=== PATIENT | female | born 1990 | race Caucasian/White ===

== ENCOUNTER 2017-09-30 09:06 | Inpatient (IN) | payer BC, MEDICAID ==
[2017-09-30] MEDS ORDERED: Dinoprostone* 10 MG VAG.SUPP VAGINAL ONE (10:36)
--- NOTE | 2017-09-30 10:51 | HP ---
General Information - General Information Maternal Age: 27 Grav: 1 Para: 0 SAB: 0 IEA: 0 Estimated Due Date: 10/02/17 Determined By: Early Ultrasound Gestational Age in Weeks and Days: 39 Weeks and 5 Days Maternal Blood Type and Rh: A Positive - Results this Serology/RPR Result: Non-Reactive Rubella Result: Immune HBsAg Result: Negative HIV Result: Negative GBS Culture Result: Negative Past Medical History Delivery History Comment: Primip Pertinent Past Medical History: Non-Contributory Pertinent Past Surgical History: None Pertinent Family History: Non-Contributory - Antepartal Records Antepartal Records: Reviewed, Complicated by: - Gestational HTN Review of Systems Constitutional: Comfortable CV Complaint: No Respiratory: Shortness of Breath: No Gastrointestinal: No Nausea/Vomiting - c/o mild constipation Genitourinary: No Dysuria, No Bleeding, No Leaking Fluid Musculoskeletal: No Complaint Neurological: No Headache, No Visual Changes Movement: Normal Exam Allergies/Adverse Reactions: Allergies No Known Allergies Allergy (Verified 11/24/12 21:22) T-98.4, P-82, R-18, BP-147/80, O2-100 Repeat BP 135/76 - Measurements Height: 5 ft 10 in Weight: 204 lb Weight in lbs: 204 Body Mass Index (BMI): 29.2 Pre- Weight: 155 lb Weight Gained This : 49 lbs and 0 ozs - Exam Abdomen: No Upper Quadrant Pain Breast: Breast Exam Deferred CVA: No CVA Tenderness Extremities: No Edema Heart: Normal Rhythm/Heart Sounds HEENT: No Significant Findings Lungs: Clear Bilaterally Rectal: Rectal Exam Deferred Reflexes: DTR 2+ - No clonus Thyroid: - - Within normal limits w/ entry to AP care - Cervical Exam 1cm/70%/-1/posterior/ VTX - Abdominal Exam Abdomen Exam: Non-Tender, Fundal Height Consistent with Dates - Membranes Membrane Status: Intact - Ultrasound/Biophysical Profile Ultrasound Status: Not Done EFM Findings - External Monitor Findings Baseline Heart Rate: 150 External Monitor Findings: Accelerations Present, No Pattern of Variable or Late Decelerations, Variability Moderate, Baseline Stable Contractions: None Assessment/Plan - Reason for Visit Reason for Visit: IOL for gestational HTN at 39 5/7 weeks gestation - Obstetrical Risk Factors Obstetrical Risk Factors: Gestational Hypertension - Plan Plan: Induction, Cervical Ripening Plan Comment: PARQ of cervical ripening with Cervadil. Pt agrees with plan. Admit to L&D for cervical ripening and induction. Anticipate . May consider pain medication as needed. - Date/Time of Admission Date of Admission: 09/30/17 Time of Admission: 10:41
[2017-09-30] MEDS ORDERED: Lidocaine 2.5%/Prilocain 2.5%* 5 GM TUBE TOPICAL SCH (21:00)
--- NOTE | 2017-09-30 22:15 | PTEDU ---
Patient Name: LUH JAMES LUH JAMES selected video: Never Ever Shake a Baby to view on 09/30/2017 at 10:15:18 PM from [email or web address] [id number]
[2017-09-30] MEDS ORDERED: Promethazine INJ(RESTRICTED)* 25 MG/ML 1 ML VIAL IV PRN (22:31)
[2017-09-30] MEDS ORDERED: Nalbuphine* 20 MG/ML 1 ML VIAL IV PRN (22:31)
[2017-09-30 23:49] LABS: ABS Basophils 0 10^3/ul (0-0.2); ABS Eosinophils 0.1 10^3/ul (0-0.6); ABS Lymphocytes 1.3 10^3/ul (1.0-4.8); ABS Monocytes 0.9 10^3/ul (0-0.8); ABS Neutrophils 14.5 10^3/ul (1.5-7.7); ABS Nucleated RBC 0 10^3/ul; Eosinophil % 0.5 % (0-6); Hematocrit 37 % (35-47); Hemoglobin 12.3 g/dl (12.0-16.0); Mean Corpuscular HGB Conc 33 g/dl (31-36); Mean Corpuscular Hemoglobin 27 pg (27-31); Mean Corpuscular Volume 79 fL (80-97); Mean Platelet Volume 10.7 um3 (7.4-10.4); Nucleated Red Blood Cells % 0; Platelet Count 198 10^3/ul (150-450); Red Blood Count 4.64 10^6/ul (4.0-5.4); Red Cell Distribution Width 15 % (10.5-15); White Blood Count 16.9 10^3/ul (3.5-10.8)
[2017-10-01 00:11] LABS: EGFR Non-African American 95.6 (>60)
[2017-10-01] MEDS ORDERED: Misoprostol TAB* 100 MCG ONE ×3 (09:48→14:13)
[2017-10-01] MEDS ORDERED: Misoprostol TAB* 100 MCG VAGINAL ONE (14:10)
[2017-10-01] MEDS ORDERED: Oxytocin in LR* 20 UNITS/1,000 ML BAG IVPB SCH ×2 (15:00→22:00)
[2017-10-01] MEDS ORDERED: OBEPIDURAL* 250 ML EPIDURAL ONE (16:27)
[2017-10-01] MEDS ORDERED: Famotidine TAB* 20 MG PO PRN (17:06)
[2017-10-01] MEDS ORDERED: Sodium Citrate/Citric Acid* 15 ML UDC PO PRN (17:06)
[2017-10-01] MEDS ORDERED: EPHEDrine (Pressors)* 50 MG/ML VIAL IV PUSH PRN ×2 (17:06)
[2017-10-01] MEDS ORDERED: Phenylephrine IV* 40 MCG/ML 10 ML SYRINGE IV PUSH PRN ×2 (17:06)
[2017-10-01] MEDS ORDERED: OBEPIDURAL* 250 ML EPIDURAL SCH (18:00)
[2017-10-01] MEDS ORDERED: Acetaminophen TAB* 325 MG PO PRN (21:19)
[2017-10-01] MEDS ORDERED: Witch Hazel PAD* JAR TOPICAL PRN (21:19)
[2017-10-02] MEDS: Ibuprofen TAB* 600 MG PO PRN ×3 (06:42→22:12)
[2017-10-02 07:11] LABS: ABS Basophils 0.1 10^3/ul (0-0.2); ABS Eosinophils 0.1 10^3/ul (0-0.6); ABS Lymphocytes 1.5 10^3/ul (1.0-4.8); ABS Monocytes 0.8 10^3/ul (0-0.8); ABS Neutrophils 11.6 10^3/ul (1.5-7.7); ABS Nucleated RBC 0 10^3/ul; Eosinophil % 0.8 % (0-6); Hematocrit 32 % (35-47); Hemoglobin 10.7 g/dl (12.0-16.0); Lymphocyte % 10.6 % (25-47); Mean Corpuscular HGB Conc 34 g/dl (31-36); Mean Corpuscular Hemoglobin 27 pg (27-31); Mean Corpuscular Volume 79 fL (80-97); Mean Platelet Volume 9.5 um3 (7.4-10.4); Nucleated Red Blood Cells % 0; Platelet Count 168 10^3/ul (150-450); Red Blood Count 4.02 10^6/ul (4.0-5.4); Red Cell Distribution Width 15 % (10.5-15)
[2017-10-02] MEDS ORDERED: Ferrous Gluconate TAB* 324 MG TAB PO SCH (09:00)
[2017-10-02] MEDS: Docusate CAP* 100 MG PO SCH ×3 (09:18→21:55)
[2017-10-03] MEDS: Ibuprofen TAB* 600 MG PO PRN (04:53)
[2017-10-03 08:19] VITALS: BP 141/76
[2017-10-03] MEDS: Docusate CAP* 100 MG PO SCH (09:09)
== END 2017-10-03 13:30 | disposition home or self-care (01) | DRG 560 ==
LOC: MCHOBOUT 09:06 → MCHOB 10:41
PROVIDERS: ADMIT Midwife; ATTEND Midwife
PROC: 10E0XZZ Delivery of Products of Conception, External Approach (ICD-10-PCS; principal; 2017-10-01)
PROC: 3E033VJ Introduction of Other Hormone into Peripheral Vein, Percutaneous Approach (ICD-10-PCS; 2017-10-01)
PROC: 0KQM0ZZ Repair Perineum Muscle, Open Approach (ICD-10-PCS; 2017-10-01)
DX: O13.4 Gestational [pregnancy-induced] hypertension without significant proteinuria, complicating childbirth (principal); O99.344 Other mental disorders complicating childbirth; F41.9 Anxiety disorder, unspecified; O70.1 Second degree perineal laceration during delivery; Z3A.39 39 weeks gestation of pregnancy; Z37.0 Single live birth
CPT/HCPCS: 36415; 59200; 80053; 85025; 86850; 86900; 86901; A9270-GY; J2300; J2550; S0191

== ENCOUNTER 2019-10-14 14:35 | Inpatient (IN) ==
[2019-10-14] MEDS ORDERED: Lactated Ringers 1000 ml BAG 1,000 ML IV ONE (15:24)
[2019-10-14 16:47] LABS: ABS Lymphocytes 1.3 10^3/ul (1.0-4.8); ABS Monocytes 0.5 10^3/ul (0-0.8); Eosinophil % 0.5 %; Hematocrit 34 % (35-47); Hemoglobin 11.7 g/dL (12.0-16.0); Lymphocyte % 13.7 %; Mean Corpuscular HGB Conc 34 g/dL (31-36); Mean Corpuscular Hemoglobin 27 pg (27-31); Mean Corpuscular Volume 80 fL (80-97); Mean Platelet Volume 9.9 fL (7.4-10.4); Platelet Count 153 10^3/uL (150-450); Red Blood Count 4.29 10^6 /uL (3.70-4.87); Red Cell Distribution Width 14 % (10-15); White Blood Count 9.2 10^3/uL (3.5-10.8)
[2019-10-14 16:52] LABS: Urine Appearance Clear; Urine Bilirubin Negative (Negative); Urine Blood Negative (Negative); Urine Color Yellow; Urine Glucose Negative (Negative); Urine Ketones Negative (Negative); Urine Nitrite Negative (Negative); Urine Protein Negative (Negative); Urine Specific Gravity 1.011 (1.010-1.030); Urine Urobilinogen Positive (Negative)
[2019-10-14 17:07] LABS: Albumin 3.5 g/dL (3.2-5.2); Albumin/Globulin Ratio 1.3 (1-3); BUN/Creatinine Ratio 12.7 (8-20); Calcium 8.8 mg/dL (8.6-10.3); EGFR African American 137.2 (>60); EGFR Non-African American 113.4 (>60); Globulin 2.7 g/dL (2-4); Potassium 3.7 mmol/L (3.5-5.0); Total Bilirubin 0.4 mg/dL (0.2-1.0); Total Protein 6.2 g/dL (6.4-8.9); Uric Acid 5.2 mg/dL (2.3-6.6)
[2019-10-14 17:11] LABS: Urine Benzodiazepine Screen None Detected (None Detect); Urine Opiates Screen None Detected (None Detect)
[2019-10-15] MEDS ORDERED: Oxytocin in LR 20 UNITS/1,000 ML BAG IVPB SCH ×2 (07:00→22:00)
[2019-10-15] MEDS: Lactated Ringers 1000 ml BAG 1,000 ML IV SCH ×3 (07:42→19:49)
[2019-10-15] MEDS ORDERED: OBEPIDURAL 250 ML EPIDURAL ONE (13:22)
[2019-10-15] MEDS ORDERED: Lactated Ringers 1000 ml BAG 1,000 ML IV ONE (14:38)
[2019-10-15] MEDS ORDERED: Lactated Ringers 1000 ml BAG 500 ML IV PRN ×2 (14:38)
[2019-10-15] MEDS ORDERED: Sodium Citrate/Citric Acid LIQ 15 ML UDC PO PRN (14:38)
[2019-10-15] MEDS ORDERED: Phenylephrine 40 mcg/mL 10mL (400mcg) SYRINGE IV PUSH PRN ×2 (14:38)
[2019-10-15] MEDS ORDERED: EPHEDrine (Pressors) 50 MG/ML VIAL IV PUSH PRN ×2 (14:38)
[2019-10-15] MEDS ORDERED: OBEPIDURAL 250 ML EPIDURAL SCH (15:00)
[2019-10-15] MEDS ORDERED: Lactated Ringers 1000 ml BAG 1,000 ML IV SCH ×2 (15:00→22:00)
[2019-10-15] MEDS ORDERED: Witch Hazel PAD JAR TOPICAL PRN (21:03)
[2019-10-15] MEDS ORDERED: Dibucaine 1% OINT 28.35 GM TUBE PR PRN (21:03)
[2019-10-15] MEDS ORDERED: Glycerin ADULT 2.4 gm SUPP PR PRN (21:03)
[2019-10-15] MEDS ORDERED: Ammonia Inhalant 1 EA AMP ONE (22:38)
[2019-10-15] MEDS ORDERED: Lidocaine 1% VIAL 10 MG/ML VIAL ONE (23:15)
[2019-10-16 08:32] LABS: ABS Eosinophils 0.1 10^3/ul (0-0.6); ABS Monocytes 0.3 10^3/ul (0-0.8); Eosinophil % 0.7 %; Hematocrit 28 % (35-47); Hemoglobin 9.3 g/dL (12.0-16.0); Lymphocyte % 9.9 %; Mean Corpuscular HGB Conc 34 g/dL (31-36); Mean Corpuscular Hemoglobin 27 pg (27-31); Mean Corpuscular Volume 82 fL (80-97); Mean Platelet Volume 10.3 fL (7.4-10.4); Platelet Count 125 10^3/uL (150-450); Red Blood Count 3.41 10^6 /uL (3.70-4.87); Red Cell Distribution Width 15 % (10-15)
[2019-10-16] MEDS ORDERED: Tetan/Diph/Pertus SYR(Tdap)* 0.5 ML SYR(BOOSTRIX) use SYR contains LATEX IM ONE (09:00)
[2019-10-16] MEDS: Docusate LIQ 100 MG/10 ML UDC PO SCH ×3 (10:04→20:59)
[2019-10-16 20:14] VITALS: BP 136/62
== END 2019-10-16 21:54 | disposition home or self-care (01) | DRG 560 ==
LOC: MCHOBOUT 14:35 → MCHOB 15:24
PROVIDERS: ADMIT Midwife; ATTEND Midwife

== ENCOUNTER 2022-07-23 17:07 | Inpatient (IN) ==
[2022-07-23] MEDS ORDERED: Buffered Lidocaine 1% SYRIN 1 ml INTRADERM ONE (17:42)
[2022-07-23 18:28] LABS: Urine Appearance Clear; Urine Bilirubin Negative (Negative); Urine Blood Negative (Negative); Urine Color Yellow; Urine Glucose Negative (Negative); Urine Ketones 1+ (Negative); Urine Nitrite Negative (Negative); Urine Protein Negative (Negative); Urine Urobilinogen Negative (Negative)
[2022-07-23 18:35] LABS: ABS Eosinophils 0.1 10^3/ul (0-0.6); ABS Lymphocytes 1.4 10^3/ul (1.0-4.8); ABS Monocytes 0.4 10^3/ul (0-0.8); ABS Neutrophils 10.1 10^3/ul (1.5-7.7); Eosinophil % 0.5 %; Hematocrit 32 % (35-47); Hemoglobin 10.8 g/dL (12.0-16.0); Mean Corpuscular HGB Conc 34 g/dL (31-36); Mean Corpuscular Hemoglobin 27 pg (27-31); Mean Corpuscular Volume 80 fL (80-97); Mean Platelet Volume 9.6 fL (7.4-10.4); Platelet Count 154 10^3/uL (150-450); Red Blood Count 4.03 10^6 /uL (3.70-4.87); Red Cell Distribution Width 15 % (10-15)
[2022-07-23] MEDS ORDERED: Lactated Ringers 1000 ml BAG 1,000 ML IV ONE (18:47)
[2022-07-23] MEDS ORDERED: Dinoprostone 10 MG VAG.SUPP VAGINAL ONE (18:47)
[2022-07-23] MEDS ORDERED: Lactated Ringers 1000 ml BAG 1,000 ML IV SCH (19:00)
[2022-07-23 19:17] LABS: Albumin 3.4 g/dL (3.2-5.2); Albumin/Globulin Ratio 1.4 (1-3); Calcium 8.4 mg/dL (8.6-10.3); Creatinine, Serum 0.59 mg/dL (0.51-0.95); Globulin 2.5 g/dL (2-4); Potassium 3.5 mmol/L (3.5-5.0); Total Bilirubin 0.4 mg/dL (0.2-1.0); Total Protein 5.9 g/dL (6.4-8.9); Uric Acid 4.8 mg/dL (2.3-6.6); eGFR CKD-EPI 124.3 (>60)
[2022-07-23] MEDS: Calcium Carb (TUMS) 500 mg CHEW TAB PO PRN (21:54)
[2022-07-24] MEDS ORDERED: miSOPROStol 100 mcg TAB VAGINAL ONE (10:07)
[2022-07-24] MEDS ORDERED: OBEPIDURAL (200 ML) 200 ML EPIDURAL ONE (15:06)
[2022-07-24] MEDS ORDERED: Lidocaine 1.5% EPI 1:200,000 30 ML SDV ONE (15:06)
[2022-07-24] MEDS ORDERED: Phenylephrine 40 mcg/mL 10mL (400mcg) SYRINGE ONE (15:37)
[2022-07-24] MEDS ORDERED: Lactated Ringers 1000 ml BAG 1,000 ML IV ONE (16:07)
[2022-07-24] MEDS ORDERED: Sodium Citrate/Citric Acid LIQ 15 ML UDC PO PRN (16:07)
[2022-07-24] MEDS ORDERED: Phenylephrine 40 mcg/mL 10mL (400mcg) SYRINGE IV PUSH PRN ×2 (16:07)
[2022-07-24] MEDS ORDERED: Lactated Ringers 1000 ml BAG 500 ML IV PRN ×2 (16:07)
[2022-07-24 16:53] LABS: Urine Appearance Clear; Urine Bilirubin Negative (Negative); Urine Blood Negative (Negative); Urine Color Yellow; Urine Glucose Negative (Negative); Urine Ketones Negative (Negative); Urine Nitrite Negative (Negative); Urine Protein Negative (Negative); Urine Specific Gravity 1.014 (1.002-1.030); Urine Urobilinogen Negative (Negative)
[2022-07-24] MEDS ORDERED: OBEPIDURAL (200 ML) 200 ML EPIDURAL SCH (17:00)
[2022-07-24] MEDS ORDERED: Lactated Ringers 1000 ml BAG 1,000 ML IV SCH ×2 (17:00→23:00)
[2022-07-24] MEDS ORDERED: Oxytocin in LR 20,000 MILLI.UNIT/1,000 ML BAG IV ONE (17:09)
[2022-07-24 17:49] LABS: Urine Benzodiazepine Screen None Detected (None Detect); Urine Cannabinoids Screen None Detected (None Detect); Urine Opiates Screen None Detected (None Detect)
[2022-07-24] MEDS: Calcium Carb (TUMS) 500 mg CHEW TAB PO PRN (19:46)
[2022-07-24] MEDS ORDERED: Oxytocin in LR 20,000 MILLI.UNIT/1,000 ML BAG IV SCH ×2 (21:15→22:30)
[2022-07-24] MEDS ORDERED: Dibucaine 1% OINT 28.35 GM TUBE PR PRN (22:18)
[2022-07-24] MEDS ORDERED: Witch Hazel PAD JAR TOPICAL PRN (22:18)
[2022-07-25 06:28] LABS: ABS Eosinophils 0.1 10^3/ul (0-0.6); ABS Lymphocytes 1.4 10^3/ul (1.0-4.8); ABS Monocytes 0.8 10^3/ul (0-0.8); ABS Neutrophils 8.5 10^3/ul (1.5-7.7); Eosinophil % 1.3 %; Hematocrit 29 % (35-47); Hemoglobin 9.6 g/dL (12.0-16.0); Lymphocyte % 12.8 %; Mean Corpuscular HGB Conc 34 g/dL (31-36); Mean Corpuscular Hemoglobin 27 pg (27-31); Mean Corpuscular Volume 79 fL (80-97); Mean Platelet Volume 9.6 fL (7.4-10.4); Platelet Count 136 10^3/uL (150-450); Red Blood Count 3.64 10^6 /uL (3.70-4.87); Red Cell Distribution Width 15 % (10-15); White Blood Count 10.8 10^3/uL (3.5-10.8)
[2022-07-26] MEDS: Calcium Carb (TUMS) 500 mg CHEW TAB PO PRN (00:41)
[2022-07-26 08:07] VITALS: BP 126/48
== END 2022-07-26 13:30 | disposition home or self-care (01) | DRG 560 ==
LOC: MCHOBOUT 17:07 → MCHOB 19:15
PROVIDERS: ADMIT Midwife; ATTEND Midwife